=== PATIENT | male | born 1975 | race Caucasian/White ===

== ENCOUNTER → 2017-02-20 | Outpatient (CLI) | payer BC ==
--- NOTE | 2017-02-20 17:42 | PCVCIMAG ---
APPROVED REPORT Study performed: 02/20/2017 15:32:41 EXAM: Comprehensive 2D, Doppler, and color-flow Echocardiogram Patient Location: Echo lab Status: routine Other Information Study Quality: Good Indications Hypertension/HDD murmur Volumes Left Atrial Volume (Systole) Single Plane 4CH: 36.45 mLSingle Plane 2CH: 48.77 mL Aortic Valve AoV Peak Killian.: 1.35 m/s AO Peak Gr.: 7.30 mmHgLVOT Max P.34 mmHg LVOT Max V: 1.15 m/s Mitral Valve E/A Ratio: 46.0 MV Decel. Time: 216.69 ms MV E Max Killian.: 0.92 m/s MV A Killian.: 0.02 m/s Tricuspid Valve TR Peak Killian.: 2.78 m/s TR Peak Gr.: 30.82 mmHg TV Vmax: 2.82 m/s Left Ventricle The left ventricle is normal size. There is normal LV segmental wall motion. There is normal left ventricular wall thickness. Left ventricular systolic function is normal. The left ventricular ejection fraction is within the normal range. LVEF is 60-65%. The left ventricular diastolic function is normal. Right Ventricle Right ventricle is mildly enlarged. The right ventricular systolic function is normal. Atria The left atrium size is normal. Probable primium atrial septal defect is present. Measures approximately 3cm in diameter There appears to be a moderate size ASD. Aortic Valve The aortic valve is normal in structure. No aortic regurgitation is present. There is no aortic valvular stenosis. Mitral Valve The mitral valve is normal in structure. There is no mitral valve regurgitation noted. No evidence of mitral valve stenosis. Tricuspid Valve The tricuspid valve is normal in structure. Trace to mild tricuspid regurgitation. Pulmonary artery pressure is 37mmhg Pulmonic Valve The pulmonary valve is normal in structure. There is no pulmonic valvular regurgitation. Great Vessels The aortic root is normal in size. IVC is normal in size and collapses with >50% inspiration Pericardium There is no pericardial effusion. <Conclusion> Left ventricular systolic function is normal. There is normal LV segmental wall motion. LVEF 60-65%. The left ventricular diastolic function is normal. Right ventricle is mildly enlarged. Probable primium atrial septal defect is present. Measures approximately 3cm in diameter with left to right shunting Trace to mild tricuspid regurgitation. Pulmonary artery pressure is 38 mmhg There is no pericardial effusion.
--- NOTE | 2017-02-20 17:48 | PCVCIMAG ---
APPROVED REPORT Exam: Stress Echocardiogram Indication: Hyperlipidemia, hypertension, Patient Location: Echo lab Stress Nurse: Vonnie Crouch RN Status: routine HR: 76 bpm Rhythm: NSR Procedure The patient underwent an Exercise Stress Test using the Ariel Protocol. Blood pressure, heart rate, and EKG were monitored. An Echocardiogram was performed by mechanical sound technician in four stages in quad fashion. At peak stress, four selected images were obtained and placed side by side with resting images for comparison. Stress Test Details Stress Test: Exercise stress was performed using a manual protocol. HR Resting HR: 76 bpmMax Heart Rate (APMHR): 181 bpm Max HR Achieved: 173 bpmTarget HR (85% APMHR): 153 bpm % of APMHR: 95 BP Resting BP: 118/84 mmHg Max BP: 180/80 mmHg ECG Resting ECG: Sinus Rhythm Stress ECG: Sinus Rhythm ST Change: Normal Clinical Reason for Termination: Dyspnea Stress Symptoms: Dyspnea Exercise duration: 9 min 53 sec Exercise capacity: 13.20 METs Overall Exercise Capacity for Age: Average Pre-Stress Echo The resting Echocardiogram showed normal left ventricular contractility with an estimated Ejection Fraction of about >55%. Normal wall motion in all segments on baseline images. Post-Stress Echo The stress Echocardiogram showed normal left ventricular contractility with an estimated Ejection Fraction of about 65-70%. Normal augmentation of wall motion in all segments on post stress images. Conclusion Clinical Response: Non-ischemic Exercise Capacity: Average Stress ECG Response: Non-ischemic Stress Echo Images: Non-ischemic
== END | disposition home or self-care (01) ==
LOC: PCVCIMAG 15:26
PROVIDERS: ATTEND Internal Medicine Cardiovascular Disease
DX: I11.9 Hypertensive heart disease without heart failure (principal); I07.1 Rheumatic tricuspid insufficiency; E78.5 Hyperlipidemia, unspecified
CPT/HCPCS: 93306; 93351

== ENCOUNTER → 2017-03-08 | Outpatient (CLI) | payer BC ==
[~2017-03-08] MED LIST: BENZOCAINE ONE 20% MUCOSAL SPRAY.; IV NORMAL SALINE 1000ML BAG 1,000 ML ONE; MIDAZOLAM HCL/PF 2 MG/2 ML VIAL. ONE; fentaNYL PF VIAL 100 MCG/2 ML VIAL ONE
--- NOTE | 2017-03-08 16:28 | PCVCIMAG ---
APPROVED REPORT Study performed: 03/08/2017 09:50:55 EXAM: JOE Patient Location: [facility] Status: routine Other Information Study Quality: Good Indications ASD Procedure After obtaining informed consent, patient underwent transesophageal echo in the [employer]. Type of Sedation : Conscious Sedation Sedation was administered by Yohana Birch RN. Sedation was achieved intravenously with: Versed (6mg) Fentanyl (250mcg) Transesophageal probe was inserted and advanced into esophagus without difficulty by Joce Mary MD. The JOE was performed without complications. Throughout the procedure, the blood pressure, pulse oximetry, cardiac rhythm, and rate were monitored. The patient tolerated the procedure without adverse effects. Recovery from conscious sedation was uneventful and vital signs were stable. Left Ventricle The left ventricle is normal size. There is normal LV segmental wall motion. There is normal left ventricular wall thickness. The left ventricular systolic function is normal. The left ventricular ejection fraction is within the normal range. The left ventricular systolic function is normal. The left ventricular ejection fraction is within the normal range. LVEF is 55-60%. Right Ventricle Right ventricle is dilated. Atria Left atrium is dilated. No masses or clots in the left atrium or left atrial appendage. Primum atrial septal defect, diameter 2.8cm. Tricuspid and mitral leaflets appear to attach to cest of interventricular septum. VSD not seen. Right atrium is dilated. Aortic Valve The aortic valve is normal in structure. No aortic regurgitation is present. There is no aortic valvular stenosis. Mitral Valve The mitral valve is normal in structure. There is no mitral valve regurgitation noted. No evidence of mitral valve stenosis. Tricuspid Valve The tricuspid valve is normal in structure. Mild tricuspid regurgitation. Pulmonic Valve The pulmonary valve is normal in structure. Great Vessels The aortic root is normal in size. Pericardium There is no pericardial effusion. <Conclusion> The left ventricular systolic function is normal. EF 55-60% Right ventricle is dilated. Both atria are dilated. No masses or clots in the left atrium or left atrial appendage. Primum atrial septal defect, diameter 2.8cm. Tricuspid and mitral leaflets appear to attach to cest of interventricular septum. VSD not seen. The aortic valve is normal in structure. No aortic regurgitation or stenosis The mitral valve is normal in structure. No mitral valve regurgitation noted. Mild tricuspid regurgitation There is no pericardial effusion.
== END | disposition home or self-care (01) ==
LOC: PCVCIMAG 08:29
PROVIDERS: ATTEND Internal Medicine
DX: Q21.1 Atrial septal defect (principal); I07.1 Rheumatic tricuspid insufficiency
CPT/HCPCS: 93312; J2250; J3010; J7030

== ENCOUNTER → 2017-03-17 | Outpatient (CLI) | payer BC ==
[~2017-03-17] MED LIST changes: -BENZOCAINE ONE 20% MUCOSAL SPRAY.; +DIAZEPAM 10 MG TABLET. ONE; +IOHEXOL 350 MG/ML 100 ML VIAL. ONE; +IOHEXOL 350 MG/ML 50 ML VIAL. ONE; +LIDOCAINE 1% Multi-Dose 20 ML VIAL. ONE
--- NOTE | 2017-03-21 18:42 | PCVCINTER ---
APPROVED REPORT Hemodynamics The aortic pressure is 105/75 mmHg with a mean of mmHg. The left ventricular pressure is 102/3 mmHg with a mean of 10 mmHg. Conclusion Patient brought to the catheterization lab for right and left heart catheterization. This was for a large ASD primum. Right groin prepped and draped in a sterile manner was inpsych was used for localized anesthesia. Versed for conscious sedation. 6 Bulgarian sheath in the right femoral artery 7 Bulgarian right femoral vein both over the wire. Initially a 7 [place]ian [place] catheter utilized for right heart catheterization with cardiac output by thermodilution. This was removed without incident. FL 4 for left coronary system FR for the right coronary system. Hyperdynamic LV function was noted and minimal coronary plaquing noted in a right dominant system. I utilized a closure device for the femoral artery without complication and pressure on the femoral vein. Patient transferred back CVA holding for discharge protocol. Impression #1 normal left ventricular size and systolic function EF 60-65% #2 abdominal aorta is intact no aneurysm renal arteries widely patent iliac system widely patent. 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
== END | disposition home or self-care (01) ==
LOC: PCVCINTER 06:38
PROVIDERS: ATTEND Internal Medicine Cardiovascular Disease
DX: I25.10 Atherosclerotic heart disease of native coronary artery without angina pectoris (principal); E78.5 Hyperlipidemia, unspecified; E78.00 Pure hypercholesterolemia, unspecified; I10 Essential (primary) hypertension; E66.01 Morbid (severe) obesity due to excess calories; Z88.0 Allergy status to penicillin
CPT/HCPCS: 75625; 93460; 99152; 99153; C1751; C1769; C1894; J1644; J2250; J3010; J7030; Q9967